=== PATIENT | female | born 2005 | race African-American/Black ===

== ENCOUNTER 2024-10-18 08:29 | Emergency (ER) | payer OTHER, SELFPAY ==
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
[2024-10-18 08:28] VITALS: BP 126/63; PULSE 89; RESP 18; TEMP 36.4; O2SAT 100
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
[2024-10-18 10:28] VITALS: BP 135/88; PULSE 62; RESP 19; O2SAT 100
== END 2024-10-18 10:34 | disposition home or self-care (01) ==
PROVIDERS: Emergency Provider Emergency Medicine
DX: S66.912A Strain of unspecified muscle, fascia and tendon at wrist and hand level, left hand, initial encounter (principal); S66.911A Strain of unspecified muscle, fascia and tendon at wrist and hand level, right hand, initial encounter; S86.811A Strain of other muscle(s) and tendon(s) at lower leg level, right leg, initial encounter; T14.8XXA Other injury of unspecified body region, initial encounter; V49.40XA Driver injured in collision with unspecified motor vehicles in traffic accident, initial encounter
CPT/HCPCS: 73110; 73562; 99284